=== PATIENT | female | born 1995 | race African-American/Black ===

== ENCOUNTER 2017-03-17 17:58 | Emergency (ER) | payer SELFPAY ==
[~2017-03-17] VITALS: Ht 157.5 cm; Wt 53.5 kg
[2017-03-17 19:06] LABS: MCH 29.5 PG (29.0-34.0); MCHC 33.5 G/DL (30.0-36.0); MCV 87.9 FL (83-99); MEAN PLAT.VOLUME 9.6 uM^3 (9.5-12.4); PLATELET COUNT 201 K/uL (156-360); RBC DIS.WIDTH-CV 12.4 % (11.8-14.6); RED BLOOD COUNT 4.21 M/uL (3.80-5.20); WHITE BLOOD COUNT 4.9 K/uL (4.1-10.2)
[2017-03-17 19:22] LABS: CHLORIDE 105 mEq/L (99-109); POTASSIUM 3.4 mEq/L (3.7-5.4); SODIUM 142 mEq/L (136-147)
[2017-03-17 19:24] LABS: GLUCOSE 81 mg/dL (70-99)
[2017-03-17 19:26] LABS: ANION GAP 9 MEQ/L (2-14)
[2017-03-17 19:29] LABS: GFR ESTIMATE (CALCULATED) > 59 mL/min/; UREA NITROGEN (BUN) 10 mg/dL (9-23)
[2017-03-17 19:37] LABS: QUANTITATIVE HCG 33.4 MIU/ML
[2017-03-17 20:08] VITALS: BP 106/82
== END 2017-03-17 20:10 | disposition home or self-care (01) ==
LOC: EME 17:58
PROVIDERS: Physician Assistant
DX: O20.0 Threatened abortion (principal)
CPT/HCPCS: 76801; 80048; 81003; 84702; 85027; 86850; 86900; 86901; 99281; 99283

== ENCOUNTER 2017-05-19 14:56 | Emergency (ER) | payer OTHER ==
[~2017-05-19] VITALS: Ht 157.5 cm; Wt 49.0 kg
[2017-05-19 15:37] LABS: HEMATOCRIT 39.8 % (36.0-46.0); MCHC 32.9 G/DL (30.0-36.0); MCV 88.1 FL (83-99); MEAN PLAT.VOLUME 9.5 uM^3 (9.5-12.4); PLATELET COUNT 192 K/uL (156-360); RBC DIS.WIDTH-CV 12.8 % (11.8-14.6); RBC DIS.WIDTH-SD 41.4 % (39-53); RED BLOOD COUNT 4.52 M/uL (3.80-5.20); WHITE BLOOD COUNT 4.2 K/uL (4.1-10.2)
[2017-05-19 16:29] LABS: CHLORIDE 103 mEq/L (99-109); POTASSIUM 3.9 mEq/L (3.7-5.4); SODIUM 139 mEq/L (136-147)
[2017-05-19 16:31] LABS: GLUCOSE 95 mg/dL (70-99)
[2017-05-19 16:33] LABS: ANION GAP 11 MEQ/L (2-14)
[2017-05-19 16:35] LABS: GFR ESTIMATE (CALCULATED) > 59 mL/min/
[2017-05-19 16:36] LABS: UREA NITROGEN (BUN) 8 mg/dL (9-23)
[2017-05-19 16:45] LABS: QUANTITATIVE HCG < 4.0 MIU/ML
[2017-05-19 19:20] VITALS: BP 100/61
== END 2017-05-19 19:22 | disposition home or self-care (01) ==
LOC: EME 14:56
DX: R55 Syncope and collapse (principal)
CPT/HCPCS: 80048; 84702; 85027; 93005; 99281; 99285; J7030